=== PATIENT | female | born 1960 | race Caucasian/White ===

== ENCOUNTER 2023-06-11 13:13 | Emergency (ER) | payer BC, SELFPAY ==
[2023-06-11 13:31] VITALS: BP 115/76
[2023-06-11 13:46] LABS: % Basophils 0.4 % (0-2); % Eosinophils 1.5 % (0-6); % Immature Granulocytes 0.2 % (0-0.5); % Lymphocytes 26.2 % (20.5-51.1); % Monocytes 11.1 % (1.7-9.3); % Neutrophils 60.6 % (42.2-75.2); Absolute Eosinophils 0.1 10^3/uL (0-0.7); Absolute Lymphocytes 1.3 10^3/uL (1.2-3.4); Absolute Monocytes 0.5 10^3/uL (0.1-0.6); Absolute Neutrophils 2.9 10^3/uL (1.4-6.5); Hematocrit 40.3 % (37.0-47.0); Hemoglobin 14.1 g/dL (12.0-16.0); Mean Corpuscular Hgb 33.7 pg (27.0-31.0); Mean Corpuscular Volume 96.4 fL (81.0-99.0); Nucleated Red Blood Cells % 0 %; Platelet Count 181 10^3/uL (130-400); Red Blood Cell Count 4.18 10^6/uL (4.20-5.40); White Blood Cell Count 4.8 10^3/uL (4.8-10.8)
[2023-06-11 13:58] LABS: ALT (SGPT) 179 U/L (0-35); AST (SGOT) 172 U/L (14-36); Albumin 4.1 g/dl (3.5-5.0); Alkaline Phosphatase 64 U/L (38-126); Blood Urea Nitrogen 6 mg/dl (7-17); Calcium 8.8 mg/dl (8.4-10.2); Carbon Dioxide 25 mmol/L (22-30); Chloride 103 mmol/L (98-107); Glucose 97 mg/dl (70-99); Lipase 161 U/L (23-300); Potassium 3.7 mmol/L (3.5-5.1); Sodium 132 mmol/L (135-145); Total Bilirubin 0.5 mg/dl (0.2-1.3); Total Protein 6.5 g/dl (6.3-8.2); eGFR > 60.00
[2023-06-11 17:31] VITALS: BMI 23.8
--- NOTE | 2023-06-11 17:32 | ED.GENMED ---
History of Present Illness
General
Chief Complaint: Abdominal Pain
Time Seen by Provider: 06/11/23 17:08
Travel History
Have you had any contact with someone who has COVID-19?: No
Do you have any symptoms of coronavirus? Fever > 100 degrees, chills, cough, shortness of breath, sore throat, loss of taste or smell, muscle aches, or headache?: No
History of Present Illness
History of Present Illness:
62-year-old female presents to the emergency department for evaluation of persistent diarrhea for the past 11 days. 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 Reports the initial onset of symptoms was with
URI symptoms, cold and flu type illness. Since that time has had persistent watery/diarrhea. She reports generalized abdominal pain with no focality. No current fevers or chills. She is able to eat and drink. No recent antibiotics or steroids
Past History
Past History
ED Past Medical History: None and Other (N./A.)
ED Past Surgical History: None and Other (N./A.)
Social History
Tobacco: Non-smoker
Personal:
Living: with family
Employment: Employed
Review of Systems
Review of Systems
Allergies reviewed?: Yes
All Other Systems: ROS reviewed and negative except as documented in HPI and ROS
Phy Exam
Physical Exam
Physical Exam:
GEN: Well appearing, NAD, WDWN
HEENT: Oral mucosa moist, no scleral icterus
Cardiac: Regular rate
Lung: No respiratory distress, no tachypnea
Abdomen: Soft, mildly tender to the epigastrium, no other tenderness, no rigidity
MSK: No gross deformity or injuries
Skin: Good color, no pallor or jaundice, no rashes
Neuro: AO x3, moves all extremities freely
Psych: Calm, cooperative
Course
Orders/Labs/Results
Orders:
Orders
06/11/23 13:38
Comprehensive Metabolic Panel Urgent
Lipase Urgent
06/11/23 13:39
Complete Blood Count/With Diff Urgent
06/11/23 17:47
0.9% Sodium Chloride 1000 ml [Nss] 1,000 ml IV BOLUS
06/11/23 17:48
Dextrose 5%/0.45%Sodchl 500 ml [D5/0.45%NaCl] 500 ml IV 500 mls/hr
Abnormal Lab Results
06/11/23 06/11/23
13:38 13:39
RBC 4.18 L 10^6/uL
(4.20-5.40)
MCH 33.7 H pg
(27.0-31.0)
MPV 11.0 H fL
(7.4-10.4)
Monocytes % 11.1 H %
(1.7-9.3)
Sodium 132 L mmol/L
(135-145)
BUN 6 L mg/dl
(7-17)
AST 172 H U/L
(14-36)
ALT 179 H U/L
(0-35)
06/11/23 13:39
06/11/23 13:38
Vital Signs
Initial and Last Documented VS:
Initial Vital Signs
Temp Pulse Resp BP Pulse Ox
98.3 F 72 18 115/76 98
06/11/23 13:31 06/11/23 13:31 06/11/23 13:31 06/11/23 13:31 06/11/23 13:31
Last Documented Vital Signs
Temp Pulse Resp BP Pulse Ox
98.3 F 58 14 101/68 98
06/11/23 13:31 06/11/23 17:44 06/11/23 17:44 06/11/23 17:44 06/11/23 17:44
MDM/Problems Addressed
MDM/Problems Addressed:
Patient's symptoms are most compatible traveler's diarrhea. Given duration more than 7 days recommend outpatient stool testing, she was already given the outpatient testing kit by her primary care physician. Unable to provide a sample here.
Recommend she provide a sample prior to initiating antibiotic therapy. Abdominal exam is benign, no indication for CT
*Critical Care Note
Total Time (30-74mins, 75-104mins- exclusive of procedures): Not Applicable
ED Attending Note
-
Portions of this chart may have been created with voice recognition software.� Occasional wrong word or��sound alike� substitutions may have occurred due to the inherent limitations of voice recognition software.
Discharge Plan
Departure
Patient Disposition: Home (Routine Discharge)
Date of Disposition: 06/11/23
Time of Disposition: 19:25
Patient with high blood pressure during this ER visit?: No
Discharge Problem:
Diarrhea
Instructions: Diarrhea in adolescents and adults
Prescriptions:
New
ondansetron 4 mg tablet,disintegrating
4 mg PO TIDPRN PRN (Reason: nausea/vomiting) Qty: 10 0RF
azithromycin 500 mg tablet
500 mg PO DAILY 3 Days Qty: 3 0RF
Rx Instructions:
500 mg orally;
No Action
ondansetron 4 MG tablet,disintegrating
4 mg PO TIDPRN PRN (Reason: nausea/vomiting) Qty: 12 0RF
Referrals:
Shelby Dos Santos CRNP [Family Provider] -
Activity Restrictions/Additional Instructions:
Do not start the antibiotic until you have collected a stool specimen for testing
Interventions
Interventions:
*Risk Screen - Suicide Last Done: 06/11/23 13:31
*General Assessment Last Done: 06/11/23 13:31
*Neglect/Abuse Screening Last Done: 06/11/23 13:31
ED- Fall Risk Assessment Last Done: 06/11/23 17:38
*ED COVID-19 Vaccine History Last Done: 06/11/23 17:44
*Nursing Disposition Last Done: 06/11/23 19:39
VX-Igqxtz-[id number] Assessment Last Done: 06/11/23 17:44
Discharge Date and Time
Discharge Date/Time: 06/11/23 19:39
Print Language: BERMUDIAN
--- NOTE | 2023-06-11 17:40 | EDRN ---
Pain centrally located as well as LUQ.
--- NOTE | 2023-06-11 17:42 | EDRN ---
Raine Kelly PA in room w/ pt at this time.
[2023-06-11 17:44] VITALS: BP 101/68
[2023-06-11] MEDS: NSS 1000 IV (17:56)
[2023-06-11] MEDS: D5/0.45%NACL 500 IV (18:53)
== END 2023-06-11 19:39 | disposition home or self-care (01) ==
LOC: EMR 13:13
PROVIDERS: Emergency Medicine; EMERGENCY PHYSICIAN Emergency Medicine; FAMILY PHYSICIAN Nurse Practitioner Family
DX: R19.7 Diarrhea, unspecified (principal); R10.84 Generalized abdominal pain
CPT/HCPCS: 99284; 96360; 96361; 80053; 83690; 85025

== ENCOUNTER → 2023-07-23 17:44 | Outpatient (REF) | payer BC, SELFPAY | LOC: WDC 17:44 | PROVIDERS: ATTENDING PHYSICIAN Obstetrics & Gynecology; FAMILY PHYSICIAN Nurse Practitioner Family | DX: Z12.31 Encounter for screening mammogram for malignant neoplasm of breast (principal) | CPT/HCPCS: 77063; 77067 ==

== ENCOUNTER → 2024-02-18 06:26 | Day surgery (SDC) | payer BC, SELFPAY | LOC: GI 06:26 | PROVIDERS: ATTENDING PHYSICIAN Student in an Organized Health Care Education/Training Program; FAMILY PHYSICIAN Nurse Practitioner Family | DX: Z12.11 Encounter for screening for malignant neoplasm of colon (principal); Z86.0100 Personal history of colon polyps, unspecified | CPT/HCPCS: G0105 ==

== ENCOUNTER → 2024-07-23 17:35 | Outpatient (REF) | payer BC, SELFPAY | LOC: WDC 17:35 | PROVIDERS: ATTENDING PHYSICIAN Obstetrics & Gynecology; FAMILY PHYSICIAN Nurse Practitioner Adult Health | DX: Z12.31 Encounter for screening mammogram for malignant neoplasm of breast (principal) | CPT/HCPCS: 77063; 77067 ==